=== PATIENT | female | born 1955 | race Caucasian/White ===

== ENCOUNTER 2021-04-20 15:30 | Emergency (ER) | payer BC ==
[2021-04-20] MEDS ORDERED: Acetaminophen/oxyCODONE 325-5 MG Tab PO ONE (16:13)
[2021-04-20] MEDS ORDERED: Ondansetron 4 MG Tab.DIS PO ONE (16:14)
[2021-04-20] MEDS ORDERED: Ibuprofen 600 MG Tab PO ONE (16:14)
--- NOTE | 2021-04-20 16:19 | EDM.PDOC ---
ED HPI GENERAL MEDICAL PROBLEM - General Chief Complaint: Back Pain or Injury Stated Complaint: FALL Time Seen by Provider: 04/20/21 16:10 Source of Information: Reports: Patient History Limitations: Reports: No Limitations - History of Present Illness INITIAL COMMENTS - FREE TEXT/NARRATIVE: 65-year-old female presents to the ED complaining of diffuse lower back pain. Patient states that she and her friend were carrying a object and she was walking backwards and tripped over a 6 inch ledge on a deck falling hard either on her buttocks or back first on concrete. She denies hitting her head or hurting her neck. Pain is limited to the right and midline of her lower back at the L5-S1 level. Denies any radiculopathy. Patient states that the hurts to breathe deeply. Hurts to cough. No previous back surgery or injuries. Onset: Today, Sudden Onset Date: 04/20/21 Onset Time: 15:00 Duration: Minutes:, Constant Location: Reports: Back (Pain across her lumbar spine slightly worse on the right as compared to the left.) Quality: Reports: Ache, Sharp, Stabbing Severity: Moderate (Sharp and stabbing with deep breathing and movement. 7 out of 10.) Improves with: Reports: Rest Worsens with: Reports: Other (Coughing or laughing makes the pain worse.), Movement Context: Reports: Trauma (Got tripped up and fell backwards onto concrete surface while walking backwards carrying a object with a friend.). Denies: Activity, Exercise, Lifting, Sick Contact Associated Symptoms: Denies: Confusion, Chest Pain, Cough, cough w sputum, Fever/Chills, Headaches, Loss of Appetite, Malaise, Rash, Seizure, Shortness of Breath, Syncope Treatments FINANCIAL ENGINEER: Reports: Other (see below) Lower Back Pain Score (Numeric/FACES): 9 - Related Data Allergies Allergy/AdvReac Type Severity Reaction Status Date / Time No Known Allergies Allergy Verified 04/20/21 15:46 Home Meds: Home Meds Desvenlafaxine Succinate [Pristiq] 100 mg PO DAILY 04/20/21 [History] Ondansetron [Zofran] 4 mg BUCCAL Q6H PRN #10 tab 04/20/21 [Rx] Propranolol [Inderal] 80 mg PO DAILY 04/20/21 [History] atorvaSTATin [Lipitor] 0 mg PO DAILY 04/20/21 [History] oxyCODONE HCl/Acetaminophen [Percocet 5-325 mg Tablet] 1 - 2 each PO Q4H PRN #24 tablet 04/20/21 [Rx] Past Medical History Cardiovascular History: Reports: High Cholesterol Neurological History: Reports: Migraines Psychiatric History: Reports: Anxiety Social & Family History - Tobacco Use Tobacco Use Status *Q: Never Tobacco User - Caffeine Use Caffeine Use: Reports: Coffee, Soda - Recreational Drug Use Recreational Drug Use: No ED ROS GENERAL - Review of Systems Review Of Systems: See Below Constitutional: Denies: Fever, Chills, Malaise, Weakness, Fatigue HEENT: Reports: Glasses Respiratory: Reports: No Symptoms Cardiovascular: Reports: Other (History of high cholesterol.) Endocrine: Reports: No Symptoms GI/Abdominal: Reports: No Symptoms : Reports: No Symptoms Musculoskeletal: Reports: Back Pain (See history of present illness.) Skin: Reports: No Symptoms Neurological: Reports: Other (History of migraine headaches.) Psychiatric: Reports: No Symptoms Hematologic/Lymphatic: Reports: No Symptoms Immunologic: Reports: No Symptoms ED EXAM,LOWER BACK PAIN/INJURY - Physical Exam Exam: See Below Exam Limited By: No Limitations General Appearance: Alert, Mild Distress, Other (Temperature is 36.7 degrees. Heart rate 65 and sinus. Respiratory is 20 with O2 sats 100% room air. BP 125/64.) Eye Exam: Bilateral Eye: Normal Inspection, PERRL Throat/Mouth: Normal Inspection, Normal Lips, Normal Oropharynx, Other (No injury to her tongue or dentition.) Head: Atraumatic, Normocephalic, Other Neck: Normal Inspection (No palpable hematomas scalp.), Supple, Non-Tender, Full Range of Motion. No: Carotid Bruit, Lymphadenopathy (L), Lymphadenopathy (R) Respiratory/Chest: No Respiratory Distress, Lungs Clear, Normal Breath Sounds, No Accessory Muscle Use Back Exam: Other (Patient does have paraspinal muscle spasm on the right side up to thoracic 7 level. Nothing on the left side. Point of maximal tenderness over the L4-L5 and L5-S1 facet joint on the right side and in the midline. No obvious spinous process fracture.) Extremities: Normal Inspection ( No obvious bruising or swelling identified.), Normal Range of Motion, Non-Tender, No Pedal Edema Neurological: Alert, Normal Mood/Affect, Normal Dorsiflexion, CN II-XII Intact, Oriented x 3 Psychiatric: Normal Affect, Normal Mood Skin Exam: Warm, Dry, Intact, Normal Color, No Rash Course - Vital Signs Last Recorded V/S: Last Vital Signs Temp 36.7 C 04/20/21 15:44 Pulse 65 04/20/21 15:44 Resp 20 04/20/21 15:44 BP 125/64 04/20/21 15:44 Pulse Ox 100 04/20/21 15:44 - Orders/Labs/Meds Meds: Medications Discontinued Medications Generic Name Dose Route Start Last Admin Trade Name Sharad PRN Reason Stop Dose Admin Ibuprofen 600 mg 04/20/21 16:14 04/20/21 16:37 Ibuprofen 600 Mg Tab PO 04/20/21 16:15 600 mg ONETIME ONE Administration Ondansetron HCl 4 mg 04/20/21 16:14 04/20/21 16:37 Ondansetron 4 Mg Tab.Dis PO 04/20/21 16:15 4 mg ONETIME ONE Administration Oxycodone/Acetaminophen 1 tab 04/20/21 16:13 04/20/21 16:37 Acetaminophen/Oxycodone 325-5 Mg Tab PO 04/20/21 16:14 1 tab ONETIME ONE Administration - Radiology Interpretation Free Text/Narrative:: 65-year-old female presents to the ED after getting tripped up or walking backwards carrying object with her friend. She tripped over a 6 inch wood ledge as part of a wooden deck but fell backwards onto concrete landing. She unsure if she landed buttocks first or lower back first. Her friend indicates that it did knock the wind out of her. She did not hit her head or lose conscious. Injury occurred about an hour ago. Patient is complaining of diffuse low back pain not able to localize it to one side versus the other. Examination reveals that there is paraspinal muscle tenderness over the right back from thoracic 6 to lumbar 5. Point of maximal tenderness over the L4-L5 and L5-S1 facet joints on the r ight side. No pain in the SI joint or pelvis itself or sacrum/ coccyx. Plan CT scan of the lumbar spine to be carried out. - Re-Assessments/Exams Free Text/Narrative Re-Assessment/Exam: 04/20/21 17:20: CT scan of the lumbar spine has been performed. It identifies a mild anterior wedge deformity within the superior endplate of lumbar 1. This appears to be acute. There is no significant retrolisthesis fragments being seen. Other vertebral body heights are maintained. Scattered anterior osteophytes are seen. No additional fracture or abnormal subluxation is seen. Moderate disc space narrowing is noted at the [id number] 1 level with mild posterior disc space narrowing also noted at the L1-2 level. Mild circumferential disc bulge is noted at the L4-5 level causing mild central canal stenosis. Other less prominent areas of disc bulging are seen throughout the lumbar spine. Mild scattered degenerative apophyseal changes seen throughout the lumbar spine. No abnormal subluxation is seen. Mild degenerative changes noted within this SI joints bilaterally. I have discussed the findings with the patient and significant other. She was advised of the nature of her injury and that is going to take several weeks I between 6 and 12 weeks to completely heal. We spoke at length about the possibility of a kyphoplasty which I would recommend for her to her young age and being so active. She will discuss this with her primary care provider later this week on Wednesday. If she still having significant pain I would encourage her to think about having a kyphoplasty performed. She would need an MRI of her lumbar spine done before seeing neurosurgery in this regard. In the interim I have placed her on Zofran 4 mg under the tongue every 6 hours needed for nausea relief. 5 tablets were provided through the [facility] machine in the ED. With this we will include Percocet tabs 5 325 mg strength 1 or 2 every 4-6 hours as needed for pain reli ef. She will purchase some MiraLAX powder 17 g and take 1 scoop once daily to prevent constipation while on the pain medication. Bones appear fairly osteopenic on CT exam. She reports having a DEXA scan 3 to 4 years ago. I would encourage her to have this repeated sometime in the next 6 months. Departure - Departure Time of Disposition: 17:19 Disposition: Home, Self-Care 01 Condition: Fair Clinical Impression: Fall Qualifiers: Encounter type: initial encounter Qualified Code(s): W19.XXXA - Unspecified fall, initial encounter Injury of lumbar spine Qualifiers: Encounter type: initial encounter Qualified Code(s): S34.109A - Unspecified injury to unspecified level of lumbar spinal cord, initial encounter Compression fracture of lumbar vertebra Qualifiers: Encounter type: initial encounter Lumbar vertebra fracture level: L1 Qualified Code(s): S32.010A - Wedge compression fracture of first lumbar vertebra, initial encounter for closed fracture - Discharge Information *PRESCRIPTION DRUG MONITORING PROGRAM REVIEWED*: Not Applicable *COPY OF PRESCRIPTION DRUG MONITORING REPORT IN PATIENT [place]: Not Applicable Prescriptions: oxyCODONE HCl/Acetaminophen [Percocet 5-325 mg Tablet] 1 - 2 each PO Q4H PRN #24 tablet PRN Reason: pain relief. Ondansetron [Zofran] 4 mg BUCCAL Q6H PRN #10 tab PRN Reason: nausea or vomiting Instructions: Spinal Compression Fracture Referrals: Keren Mae COMMERCIAL HORTICULTURE INSTRUCTOR [Primary Care Provider] - Forms: ED Department Discharge Additional Instructions: Evaluation in the emergency room today in regards to injuries to your lower back that occurred while walking backwards while carrying an object. You tripped over a wooden ledge about 6 inches high it which caused you to fall backwards landing hard on your buttocks or lower back. Pain throughout the lumbar spine and I found significant paraspinal muscle spasm on the right side as compared to the left. No pain radiating down your lower extremities at the time of examination. CT scan of the lumbar spine reveals that you have suffered a anterior wedge compression fracture of lumbar 1 vertebra. You have 5 bones in your lower back and lumbar 1 is the first in the mid lower back. Pain is likely to worsen particular the next 2 to 3 days limiting mobility. You cannot bend forwards like to tie her shoes for at least 3 to 4 weeks. You'll need pain medication i.e. Percocet 5/325 mg strength 1 or 2 tablets every 4-6 hours for the next several days for pain relief. Pain medicine causes constipation. You'll need to take MiraLAX powder 1 scoop per 17 g once daily to prevent constipation from occurring. Second medication is Zofran 4 mg under the tongue that you may take every 4-6 hours as necessary for relief of nausea sometimes caused by the pain and sometimes caused by the pain medication. Suggest follow- up with your primary care provider later this week and see how you are doing. Some patients require a walker to aid ambulation over the next few days. As we discussed you may want to think about having a kyphoplasty -surgical procedure done on your lower back which would reduce your pain fairly promptly and is carried out by neurosurgeons in [place]. They would require an MRI of your lower back to be done first to confirm that you have an acute fracture in your lower back. Note your bones do appear quite thin are osteopenic on CT exam. I would suggest having a follow-up bone DEXA scan performed within the next 6 months. Return to the ED if you have any further problems before getting into your primary care provider. Sepsis Event Note (ED) - Evaluation Sepsis Screening Result: No Definite Risk - Focused Exam Vital Signs: Vital Signs Temp Pulse Resp BP Pulse Ox 04/20/21 15:44 36.7 C 65 20 125/64 100
--- NOTE | 2021-04-20 16:58 | CT ---
CT lumbar spine Technique: Multiple axial sections were obtained from above the T11-12 disc through the L5-S1 disc. Reconstructed coronal and sagittal images were obtained. Comparison: No prior lumbar spine imaging is available. Findings: Mild anterior wedge deformity is noted within the superior endplate of L1. I believe that this is acute. There is no significant retrolisthesis fragments being seen. Other vertebral body heights are maintained. Scattered anterior osteophytes are seen. No additional fracture or abnormal subluxation is seen. Moderate disc space narrowing is noted at T12-L1 with mild posterior disc space narrowing also noted at L1-2. Mild circumferential disc bulge is noted at L4-5 causing mild central canal stenosis. Other less prominent areas of disc bulging are seen throughout the lumbar spine. Mild scattered degenerative apophyseal change is seen throughout the lumbar spine. No abnormal subluxation is seen. Mild degenerative change is noted within the sacroiliac joints. Impression: 1. Mild anterior wedge deformity of L1 involving the superior endplate which I believe is acute. No significant retrolisthesis fragments are seen of L1. 2. Mild degenerative disc space narrowing at T12-L1 and L1-2. 3. Other degenerative change as noted above. Diagnostic code #3
== END 2021-04-20 17:45 | disposition home or self-care (01) ==
LOC: JD.ED 15:30
DX: S32.010A Wedge compression fracture of first lumbar vertebra, initial encounter for closed fracture (principal); E78.00 Pure hypercholesterolemia, unspecified; Z79.899 Other long term (current) drug therapy; W01.190A Fall on same level from slipping, tripping and stumbling with subsequent striking against furniture, initial encounter
CPT/HCPCS: 72131; 99283; A9270; 99284

== ENCOUNTER 2025-10-04 09:57 | Day surgery (SDC) | payer MEDICARE, OTHER ==
[~2025-10-04 09:57] MED LIST: Pilocarpine 4% Ophth Soln 15 ML Bot EYELF SCH
[2025-10-04] MEDS: Polymyxin B/Trimethoprim 10 ML Bottle EYELF SCH (10:00)
[2025-10-04] MEDS: Tropicamide 1% Ophth Soln 3 ML Bottle EYELF SCH (10:15)
[2025-10-04] MEDS: Tetracaine HCl/PF 0.5% 4 ML Bottle EYEBOTH SCH (11:22)
[2025-10-04] MEDS: Lidocaine 1% PF 2 ML SDV INJECT SCH (11:46)
[2025-10-04] MEDS: Cefuroxime 10 MG/ML SYRINGE EYELF SCH (11:58)
== END 2025-10-04 12:05 | disposition home or self-care (01) ==
LOC: JD.SDS 09:57
PROVIDERS: ATTEND Ophthalmology
DX: H25.812 Combined forms of age-related cataract, left eye (principal); H35.3131 Nonexudative age-related macular degeneration, bilateral, early dry stage; H35.363 Drusen (degenerative) of macula, bilateral; H16.223 Keratoconjunctivitis sicca, not specified as Sjogren's, bilateral; D31.32 Benign neoplasm of left choroid; Z96.1 Presence of intraocular lens; Z79.899 Other long term (current) drug therapy
CPT/HCPCS: 66984; A9270; J0697; J3490